=== PATIENT | female | born 1980 | race Caucasian/White ===

== ENCOUNTER 2016-10-28 12:16 | Emergency (ER) | payer OTHER ==
[~2016-10-28] VITALS: Ht 165.1 cm; Wt 52.2 kg
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
[2016-10-28] MEDS ORDERED: CYCLOBENZAPRINE5 M2 PO (12:22)
[2016-10-28 12:29] VITALS: BP 162/74
== END 2016-10-28 12:42 ==
LOC: ERH 12:16
DX: S33.5XXA Sprain of ligaments of lumbar spine, initial encounter (principal); S43.402A Unspecified sprain of left shoulder joint, initial encounter; V43.62XA Car passenger injured in collision with other type car in traffic accident, initial encounter